=== PATIENT | female | born 2000 | race Caucasian/White ===

== ENCOUNTER 2021-12-07 07:55 | Emergency (ER) | payer SELFPAY ==
[~2021-12-07] VITALS: Ht 165.1 cm; Wt 73.0 kg
[2021-12-07] MEDS ORDERED: KETOROLAC 60MG/2ML VIAL IM ONE (08:30)
[2021-12-07] MEDS ORDERED: DEXAMETHASONE 10 MG/ML VIAL IV ONE (08:30)
[2021-12-07] MEDS ORDERED: BACL-141 MT (08:50)
[2021-12-07] MEDS ORDERED: ACET-2708 MT (08:50)
[2021-12-07] MEDS ORDERED: LIDO700A15 TP (08:50)
[2021-12-07] MEDS ORDERED: IBUP-2029 MT (08:50)
[2021-12-07] MEDS ORDERED: LIDOCAINE 5% PATCH TOP SCH (09:00)
[2021-12-07] MEDS: ACETAMINOPHEN 325MG TABLET PO ONE ×2 (09:03→09:17)
[2021-12-07 09:18] VITALS: BP 137/71
== END 2021-12-07 09:31 | disposition home or self-care (01) ==
LOC: ER 07:55
DX: M54.41 Lumbago with sciatica, right side (principal); G57.01 Lesion of sciatic nerve, right lower limb; I10 Essential (primary) hypertension; F12.10 Cannabis abuse, uncomplicated
CPT/HCPCS: 96372; 96374; 99283; J1100; J1885